=== PATIENT | male | born 1980 | race Hispanic/Latino ===

== ENCOUNTER 2019-03-06 01:22 | Emergency (ER) | payer BC, OTHER | END 2019-03-06 01:41 | LOC: EDH 01:22 | DX: Z02.83 Encounter for blood-alcohol and blood-drug test (principal); Z72.0 Tobacco use ==

== ENCOUNTER 2020-11-02 14:33 | Emergency (ER) | payer OTHER ==
[2020-11-02] MEDS ORDERED: ACETAMINOPHEN-CODEINE 300/30MG TAB ONE (15:09)
[2020-11-02] MEDS ORDERED: KETOROLAC TROMETHAMINE 30MG/ML ONE (15:09)
== END 2020-11-02 16:10 | disposition home or self-care (01) ==
LOC: EDH 14:33
DX: M79.671 Pain in right foot (principal); Z72.0 Tobacco use
CPT/HCPCS: 73630; 96372; 99283; J1885